=== PATIENT | female | born 1940 | race Caucasian/White ===

== ENCOUNTER 2016-12-08 04:05 | Emergency (ER) | payer OTHER ==
[~2016-12-08] VITALS: Ht 160 cm; Wt 74.4 kg
--- NOTE | 2016-12-08 04:10 | NUR ---
Patient to ER bed 6 to gown for evaluation. Side rails up. Report given to LAMBERTO BENAVIDES.
[2016-12-08 04:12] VITALS: BP_SYST 157
--- NOTE | 2016-12-08 04:15 | NUR ---
Patient to ER C/O RLQ abdominal pain 11/12 w/o N/V/D/C. Patient states that pain started last evening. AAox4, unlabored breathing, afebrile, no signs of acute distress.
--- NOTE | 2016-12-08 04:16 | NUR ---
RENEE VELOZ Kwaw at bedside evaluating the patient
--- NOTE | 2016-12-08 04:25 | NUR ---
# 20 gauge angiocath placed to left ac. Use of asceptic technique. Opsite placed over site. Blood return noted. Blood for lab drawn from site. Flushed with 10 cc of normal saline. No evidence of infiltration noted. Patient tolerated well.
[2016-12-08 04:40] LABS: BASOPHILS % (AUTO) 0.4 % (0.0-2.0); EOSINOPHILS % (AUTO) 0.2 % (0.0-4.0); HEMATOCRIT 39.9 % (36-48); HEMOGLOBIN 13.3 g/dL (12.0-16.0); LYMPHOCYTES # (AUTO) 1.2 K/uL (1.0-5.5); LYMPHOCYTES % (AUTO) 14.3 % (20.5-51.5); MEAN CORPUSCULAR HEMOGLOBIN 31 pg (27-31); MEAN CORPUSCULAR HGB CONC 33 % (32-36); MEAN CORPUSCULAR VOLUME 93 fL (79.0-98.0); MONOCYTES # (AUTO) 0.5 K/uL (0.0-1.0); NEUTROPHILS # (AUTO) 6.8 K/uL (1.8-7.7); NEUTROPHILS % (AUTO) 79.1 % (40.0-70.0); PLATELET COUNT (AUTO) 281 K/uL (130-430); RED BLOOD CELL COUNT(AUTO) 4.29 MIL/uL (4.2-6.2); RED CELL DISTRIBUTION WIDTH 12.1 % (9.0-15.0); WHITE BLOOD COUNT (AUTO) 8.5 K/uL (4.8-10.8)
[2016-12-08 04:49] LABS: BILIRUBIN,URINE NEGATIVE (NEGATIVE); BLOOD, URINE 3+ (NEGATIVE); CLARITY/URINE CLOUDY (CLEAR); COLOR,URINE YELLOW (YELLOW); GLUCOSE,URINE NEGATIVE (NEGATIVE); KETONES,URINE 1+ (NEGATIVE); LEUKOCYTE ESTERASE ,URINE TRACE (NEGATIVE); NITRITE, URINE NEGATIVE (NEGATIVE); PROTEIN URINE 2+ (NEGATIVE); UROBILINOGEN,URINE 0.2 (0.2-1.0)
[2016-12-08 04:55] LABS: ANION GAP 8 (5-15); CALCIUM 8.8 mg/dL (8.4-11.0); CHLORIDE 106 mmol/L (98-107); CREATININE 1.18 mg/dL (0.55-1.30); GLUCOSE 145 mg/dL (70-99); POTASSIUM 3.6 mmol/L (3.5-5.1); SODIUM SERUM 140 mmol/L (136-145); UREA NITROGEN, BLOOD 12 mg/dL (8-21)
[2016-12-08 04:56] LABS: RBC,URINE 50-80 /HPF (0-3)
[2016-12-08 04:57] LABS: BACTERIA,URINE FEW /HPF (None Seen); MUCUS,URINE None Seen /LPF (None Seen); YEAST,URINE Rare /HPF (None Seen)
[2016-12-08 04:59] LABS: ALANINE AMINOTRANSFERASE 23 U/L (12-78); ALBUMIN 3.9 g/dL (3.4-4.8); ASPARTATE AMINOTRANSFERASE 18 U/L (10-37); LIPASE 88 U/L (73-393); TOTAL BILIRUBIN 0.4 mg/dL (0.0-1.0)
[2016-12-08] MEDS ORDERED: cefTRIAXone 1 GM IVPB PREMIX 50 ML IV ONE ×2 (05:30→05:31)
--- NOTE | 2016-12-08 05:40 | NUR ---
20 minutes after administration of Rocephin, no adverse reactions noted. Will continue to monitor.
[2016-12-08 06:02] VITALS: BP_SYST 136
--- NOTE | 2016-12-08 06:02 | NUR ---
Patient given written and verbal discharge instructions and verbalizes understanding. ER MD Tavarez discussed with patient the results and treatment provided. Patient in stable condition. ID arm band removed. IV catheter removed intact and dressing applied, no active bleeding. Rx of macrobid & pyridium given. Patient educated on pain management and to follow up with PMD. Pain Scale 0/10. Opportunity for questions provided and answered.
== END 2016-12-08 06:02 | disposition home or self-care (01) ==
LOC: SED 04:05
DX: N39.0 Urinary tract infection, site not specified (principal); I10 Essential (primary) hypertension
CPT/HCPCS: 36415; 80053; 81000; 83690; 85025; 87086; 96365; 99284; J0696

== ENCOUNTER 2017-01-19 09:16 | Emergency (ER) | payer OTHER ==
[~2017-01-19] VITALS: Ht 160 cm; Wt 63.5 kg
[2017-01-19 09:16] VITALS: BP_SYST 164
[2017-01-19 09:55] VITALS: BP_SYST 160
== END 2017-01-19 09:55 | disposition home or self-care (01) ==
LOC: SED 09:16
DX: S83.92XA Sprain of unspecified site of left knee, initial encounter (principal); I10 Essential (primary) hypertension; X58.XXXA Exposure to other specified factors, initial encounter; Y93.89 Activity, other specified; Y92.89 Other specified places as the place of occurrence of the external cause; Y99.8 Other external cause status
CPT/HCPCS: 73564; 99284

== ENCOUNTER 2019-04-26 10:50 | Outpatient (CLI) | payer OTHER | END 2019-04-26 21:05 | disposition home or self-care (01) | LOC: SMA 10:50 | DX: Z12.31 Encounter for screening mammogram for malignant neoplasm of breast (principal) | CPT/HCPCS: 77067 ==

== ENCOUNTER 2019-05-01 21:37 | Inpatient (IN) | payer OTHER ==
[~2019-05-01] VITALS: Ht 160 cm; Wt 68.9 kg
[2019-05-01 21:44] VITALS: BP_SYST 155
--- NOTE | 2019-05-01 21:55 | NUR ---
Gown placed to pt, cooling measures in effect.
--- NOTE | 2019-05-01 21:57 | NUR ---
Pt to lab via W/C in stable condition. Accompanied by Temperature Control Inspector and pts daughter.
[2019-05-01] MEDS ORDERED: ACETAMINOPHEN 325 MG TABLET ONE (22:25)
[2019-05-01 22:35] LABS: HEMATOCRIT 40.8 % (36-48); HEMOGLOBIN 13.8 g/dL (12.0-16.0); MEAN CORPUSCULAR HEMOGLOBIN 31 pg (27-31); MEAN CORPUSCULAR HGB CONC 34 % (32-36); MEAN CORPUSCULAR VOLUME 93 fL (79.0-98.0); PLATELET COUNT (AUTO) 248 K/uL (130-430); RED CELL DISTRIBUTION WIDTH 11.8 % (9.0-15.0); WHITE BLOOD COUNT (AUTO) 19.8 K/uL (4.8-10.8)
[2019-05-01 22:39] LABS: ANION GAP 8 (5-15); CALCIUM 8.5 mg/dL (8.4-11.0); CHLORIDE 94 mmol/L (98-107); CREATININE 1.22 mg/dL (0.55-1.30); GLUCOSE 156 mg/dL (70-99); POTASSIUM 3.5 mmol/L (3.5-5.1); SODIUM SERUM 128 mmol/L (136-145); UREA NITROGEN, BLOOD 21 mg/dL (8-21)
[2019-05-01 22:49] LABS: ALANINE AMINOTRANSFERASE 21 U/L (12-78); ALBUMIN 3.1 g/dL (3.4-4.8); ASPARTATE AMINOTRANSFERASE 28 U/L (10-37); TOTAL BILIRUBIN 0.9 mg/dL (0.0-1.0)
--- NOTE | 2019-05-01 23:00 | NUR ---
Temp recheck: 97.9. Denies c/o pain or discomfort, daughter present at pts side, no needs verbalized at this time. NAD.
[2019-05-01 23:25] LABS: BASOPHILS % (MANUAL) 0 % (0-2); EOSINOPHILS % (MANUAL) 0 % (0-7); LYMPHOCYTES % (MANUAL) 3 % (20-46); MONOCYTES % (MANUAL) 6 % (0-11)
--- NOTE | 2019-05-01 23:30 | NUR ---
Pt to ER Chair 1. Report given to KENNEDY Buckley.
--- NOTE | 2019-05-01 23:50 | NUR ---
[facility].
--- NOTE | 2019-05-02 00:07 | NUR ---
IVF infusing with no s/s of infiltration at this time. Will cont to monitor
[2019-05-02 00:08] LABS: BILIRUBIN,URINE 1+ (NEGATIVE); BLOOD, URINE 3+ (NEGATIVE); CLARITY/URINE TURBID (CLEAR); GLUCOSE,URINE NEGATIVE (NEGATIVE); KETONES,URINE NEGATIVE (NEGATIVE); LEUKOCYTE ESTERASE ,URINE 2+ (NEGATIVE); NITRITE, URINE NEGATIVE (NEGATIVE); PROTEIN URINE 3+ (NEGATIVE)
--- NOTE | 2019-05-02 00:13 | NUR ---
BIB family for ALOC. Pt was unsteady on feet, forgot how to put on a seat belt, forgetfullness. Per daughter is better than she was this afternoon. Pt denies n/v, denies chest pain, denies headache.
[2019-05-02 00:26] LABS: COLOR,URINE YELLOW (YELLOW)
[2019-05-02 00:30] LABS: BACTERIA,URINE MANY /HPF (None Seen); FINE GRANULAR CASTS,URINE 0-10 /LPF (None Seen); RBC,URINE 20-50 /HPF (0-3); WBC,URINE 20-50 /HPF (0-3)
[2019-05-02] MEDS ORDERED: NACL 0.9% 1,000 ML IV ONE (00:48)
[2019-05-02] MEDS ORDERED: cefTRIAXone 1 GM IVPB PREMIX 50 ML IV ONE (01:00)
--- NOTE | 2019-05-02 01:24 | NUR ---
Patient will be admitted to care of Tyree. Admitted to tele unit. Will go to room 119-A. Belongings list completed. Complete and up to date summary report printed. SBAR report to be given at bedside with opportunity for questions. Transfer to tele via ACLS protocol. Licensed nurse present. IV present no signs or symptoms of infiltration.
[2019-05-02] MEDS ORDERED: LIP10 PO (01:31)
[2019-05-02] MEDS ORDERED: AMLO5TAB4 PO (01:31)
--- NOTE | 2019-05-02 01:38 | NUR ---
ADMISSION NOTE Received patient from ER via gurney. Patient admitted with diagnosis of Sepsis/UTI. Patient is awake, alert, oriented X 3. Patient oriented to hospital room, call light, toileting, pain management and safety-teach back done. Patient informed that KENNEDY Berumen will be primary nurse and that their room number is 119A. Personal belongings checked and Belongings List documented. Call light within reach.
[2019-05-02 01:46] VITALS: BP_SYST 111
--- NOTE | 2019-05-02 02:00 | NUR ---
initial notes: pt is awake, alert,oriented x4, no pain, no sob, not distress. pt vital sign are with in normal limit. iv lock to right forearm gauge 20- intact and patent. no skin break down, steady gait.orient pt to room, call light and safety. pt verbalized understanding.needs attended, call light in reach, side rails up. low bed position. will monitor.
[2019-05-02] MEDS ORDERED: NACL 0.9% 1,000 ML IV SCH (03:12)
[2019-05-02] MEDS ORDERED: MORPHINE 4 MG/ML INJ. SYRINGE IVP PRN (03:15)
[2019-05-02] MEDS ORDERED: MORPHINE 2 MG/ML INJ. SYRINGE IVP PRN (03:15)
[2019-05-02] MEDS ORDERED: ONDANSETRON HCL 4 MG/2 ML VIAL IVP PRN (03:15)
[2019-05-02] MEDS ORDERED: ALBUTEROL SULFATE 0.083% 2.5 MG/3 ML VIAL.NEB INH PRN (03:15)
[2019-05-02 03:27] VITALS: BP_SYST 101
[2019-05-02] MEDS ORDERED: NS 500 ML IV SCH (03:30)
--- NOTE | 2019-05-02 04:10 | NUR ---
sleeping on her side, comfortable. no sob. stable. call light in reach. will monitor.
--- NOTE | 2019-05-02 05:02 | NUR ---
Swallow Eval Called Called and left a message for [place], regarding swallow eval, ordered by Dr. Buckner.
--- NOTE | 2019-05-02 06:00 | NUR ---
resting quietly, no pain. no sob. no distress. call light in reach, bed alarm on. will monitor.
--- NOTE | 2019-05-02 07:22 | NUR ---
closing: pt is resting, wakes up during report. no pain. no sob. stable. ivf infusing well. needs attended the whole shift. safety on. bedside report given to am rn.
[2019-05-02 08:10] VITALS: BP_SYST 109
--- NOTE | 2019-05-02 08:10 | NUR ---
Routine Patient awake, alert, oriented x4. Glasses. Lungs clear. Respiration even and unlabored. ST per telemetry monitoring. Patent 20 gauge IV in right forearm, infusing NS at 75 ml/hr with no redness or swelling at site. Small scab on left contreras. SCDs. Denies any pain. Patient stable.
[2019-05-02 08:26] LABS: BASOPHILS % (AUTO) 0.1 % (0.0-2.0); HEMATOCRIT 37.3 % (36-48); HEMOGLOBIN 12.6 g/dL (12.0-16.0); LYMPHOCYTES # (AUTO) 0.5 K/uL (1.0-5.5); LYMPHOCYTES % (AUTO) 3.1 % (20.5-51.5); MEAN CORPUSCULAR HEMOGLOBIN 31 pg (27-31); MEAN CORPUSCULAR HGB CONC 34 % (32-36); MEAN CORPUSCULAR VOLUME 92 fL (79.0-98.0); MONOCYTES # (AUTO) 1.7 K/uL (0.0-1.0); MONOCYTES % (AUTO) 10.7 % (1.7-9.3); NEUTROPHILS # (AUTO) 13.9 K/uL (1.8-7.7); NEUTROPHILS % (AUTO) 86.1 % (40.0-70.0); PLATELET COUNT (AUTO) 191 K/uL (130-430); RED BLOOD CELL COUNT(AUTO) 4.04 MIL/uL (4.2-6.2); RED CELL DISTRIBUTION WIDTH 11.9 % (9.0-15.0); WHITE BLOOD COUNT (AUTO) 16.1 K/uL (4.8-10.8)
[2019-05-02 08:33] LABS: ALANINE AMINOTRANSFERASE 23 U/L (12-78); ALBUMIN 2.7 g/dL (3.4-4.8); ANION GAP 8 (5-15); ASPARTATE AMINOTRANSFERASE 27 U/L (10-37); CALCIUM 8.1 mg/dL (8.4-11.0); CHLORIDE 95 mmol/L (98-107); CREATININE 1.14 mg/dL (0.55-1.30); GLUCOSE 131 mg/dL (70-99); POTASSIUM 3.4 mmol/L (3.5-5.1); SODIUM SERUM 128 mmol/L (136-145); TOTAL BILIRUBIN 0.6 mg/dL (0.0-1.0); UREA NITROGEN, BLOOD 19 mg/dL (8-21)
[2019-05-02] MEDS: ATORVASTATIN 10 MG TABLET PO SCH (09:32)
[2019-05-02] MEDS: amLODIPine BESYLATE 5 MG TABLET PO SCH (09:33)
--- NOTE | 2019-05-02 09:34 | NUR ---
Routine Scheduled medications given per order. Patient resting comfortably in bed with no complaint of any pain at this time. Patient stable.
--- NOTE | 2019-05-02 12:27 | NUR ---
Routine Patient resting comfortably in bed with daughter, Char at bedside. Patient denies any pain. Patient stable at this time.
[2019-05-02 12:50] VITALS: BP_SYST 144
[2019-05-02] MEDS: ACETAMINOPHEN 325 MG TABLET PO PRN ×2 (13:20→22:11)
[2019-05-02] MEDS: cefTRIAXone 1 GM IVPB PREMIX 50 ML IV SCH (13:20)
--- NOTE | 2019-05-02 13:27 | NUR ---
Routine Scheduled IV abx given per order. Tylenol given as well for fever. Patient stable with daughter at bedside.
--- NOTE | 2019-05-02 14:20 | NUR ---
Routine Rechecked temp: 97.8
[2019-05-02 15:08] VITALS: BP_SYST 131
--- NOTE | 2019-05-02 16:29 | NUR ---
Social Service Note: BOX INSPECTOR spoke with pt's granddaughter who states that pt cannot go home upon discharge. Pt lives in a mobile home alone. Granddaughter would like to see if pt qualifies for [employer]. ALPHONSO has made referral Ricco Laureano for [employer] screen. BOX INSPECTOR encouraged pt's granddaughter to speak to commercial lines insurance agent about short term placement.
--- NOTE | 2019-05-02 16:35 | NUR ---
Routine Patient resting comfortably and quietly in bed with family member at bedside. No complaint of pain or discomfort. Patient stable at this time.
--- NOTE | 2019-05-02 17:18 | NUR ---
S.T. SWALLOW EVAL SWALLOW EVAL COMPLETED. PT PRESENTS W/ FUNCTIONAL OROPHARYNGEAL SWALLOW W/ TIMELY BOLUS TRANSFER, TIMELY SWALLOW INITIATION, AND NO S/S OF ASPIRATION. REC: CONTINUE REGULAR TEXTURED DIET. THIN LIQUIDS OK. PT AND DTR IN AGREEMENT W/ RESULTS AND REC. NURSE JOSE ROBERTO NOTIFIED.
--- NOTE | 2019-05-02 18:40 | NUR ---
Routine Patient ambulated to bathroom and back to bed. Patient stable throughout shift.
--- NOTE | 2019-05-02 19:30 | NUR ---
OPENING NOTE RECEIVED CARE OF PT AND SBAR REPORT. PT IS AAOX3, NO S/S OF ACUTE DISTRESS, AFEBRILE AT THIS TIME. PT DENIES PAIN OR DISCOMFORT. IV IS PATENT WITH NO S/S OF INFILTRATION AT IV SITE. PT ORIENTED TO USE OF CALL LIGHT AND ENCOURAGED TO CALL FOR ANY ASSISTANCE. SAFETY PRECAUTIONS ARE IN PLACE: BED IS LOCKED IN LOWEST POSITION, SIDE RAILS UP X3, CALL LIGHT IS WITH PT, BED ALARM ON. WILL CONTINUE TO MONITOR.
[2019-05-02 20:00] VITALS: BP_SYST 148
--- NOTE | 2019-05-02 21:40 | NUR ---
CONFUSED/ROOM CHANGE PT INCONTINENT OF BOWELS, ATTEMPTING TO AMBULATE WITH UNSTEADY GAIT, PT STATES SHE DOES NOT KNOW WHAT IS GOING ON. PT RETURNED SAFELY TO BED. BED BATH GIVEN. COMPLETE LINEN AND GOWN CHANGE RENDERED. PT CONFUSED AT THIS TIME. PT MOVED TO ROOM 121B TO BE CLOSER TO NURSES STATION. SAFETY AND FALL PRECAUTIONS REMAIN IN PLACE. CALL LIGHT IS WITH PT. WILL MONITOR CLOSELY.
--- NOTE | 2019-05-02 22:11 | NUR ---
TYLENOL PT TEMPERATURE OF 100.4 DEGREES FAHRENHEIT. TYLENOL 650 MG PO ADMINISTERED ORDERED PRN. MEDICATION AND POTENTIAL SIDE EFFECTS DISCUSSED. PT CONFUSED AT THIS TIME. SAFETY PRECAUTIONS MAINTAINED.
[2019-05-03] VITALS (7 sets, daily range): BP systolic 122–153
--- NOTE | 2019-05-03 00:35 | NUR ---
IV RE-INSERTION: Restarted on RIGHT FOREARM 22 GAUGE . Successful after 2 attempts. Will observe for any signs of infiltration.
[2019-05-03] MEDS: cefTRIAXone 1 GM IVPB PREMIX 50 ML IV SCH ×2 (00:57→12:52)
--- NOTE | 2019-05-03 00:57 | NUR ---
ROCEPHIN SCHEDULED ROCEPHIN ADMINISTERED. NO S/S OF ADVERSE REACTION NOTED.
--- NOTE | 2019-05-03 03:28 | NUR ---
DR. BOLDEN ROUNDS INFORMED DR. BOLDEN REGARDING PT'S RENAL ULTRASOUND RESULTS.
--- NOTE | 2019-05-03 05:30 | NUR ---
BEDPAN/CLEANED ASSISTED PT TO USE BEDPAN. PT URINATED. PT CLEANED AND PROVIDED FRESH LINEN AND GOWN. PT PROVIDED REALITY ORIENTATION. NO S/S OF ACUTE DISTRESS. SAFETY MAINTAINED. WILL MONITOR.
--- NOTE | 2019-05-03 06:50 | NUR ---
CLOSING NOTE PT IS AAOX3, NO S/S OF ACUTE DISTRESS, AFEBRILE AT THIS TIME. PT DENIES PAIN OR DISCOMFORT. IV IS PATENT WITH NO S/S OF INFILTRATION AT IV SITE. PT ORIENTED TO USE OF CALL LIGHT AND ENCOURAGED TO CALL FOR ANY ASSISTANCE. SAFETY PRECAUTIONS ARE IN PLACE: BED IS LOCKED IN LOWEST POSITION, SIDE RAILS UP X3, CALL LIGHT IS WITH PT, BED ALARM ON. WILL ENDORSE TO DAY SHIFT RN.
--- NOTE | 2019-05-03 07:35 | NUR ---
opening note patient is resting in bed, alert and oriented, educated insulation power unit tender light system and plan of care, patient verbalized understanding, no signs of distress at this time, IV site dressing intact, no other needs addressed at this time, brake armed, two side rails up, bed alarm on, call light within reach, room close to station, fall/safety precautions in place.
[2019-05-03] MEDS: amLODIPine BESYLATE 5 MG TABLET PO SCH (08:14)
[2019-05-03] MEDS: ATORVASTATIN 10 MG TABLET PO SCH (08:14)
--- NOTE | 2019-05-03 10:10 | NUR ---
patient attempted to walk patient resting in bed, patient wanted to attempt walking, patient had an unsteady, assisted back to bed, re-inforced education on using call light if patient wants to get up, educated on the need for the bed alarm, patient verbalized understanding, fall/safety precautions in place.
--- NOTE | 2019-05-03 12:00 | NUR ---
rounds patient is resting in bed, no signs of distress at this time, patient denies any chest pain, SOB, pain or chills, patient is about to eat lunch, no other needs addressed at this time, fall/safety precautions in place.
--- NOTE | 2019-05-03 14:26 | NUR ---
rounds patient is resting in bed, eyes closed breathing easy and nonlabored, no signs of distress at this time, no needs addressed at this time, fall/safety precautions in place.
--- NOTE | 2019-05-03 15:13 | NUR ---
Dietitian Recommendations * Recommend continuing cardiac diet * Encourage increase PO intakes LP, RD Please refer to Nutrition Assessment for details. Addendum: 05/03/19 at [address] Amended: Links added.
--- NOTE | 2019-05-03 16:38 | NUR ---
rounds patient is resting in bed, doing her crossword puzzle, no signs of distress at this time, no needs addressed at this time, fall/safety precautions in place.
--- NOTE | 2019-05-03 17:27 | NUR ---
CONSULTATION PAGED REASON FOR CONSULTATION:HYDRONEPROSIS WAS CONSULT CALLED?Y PERSON WHO WAS NOTIFIED:LEFT A VOICEMAIL CONSULTING PHYSICIAN:MILANA VELASQUEZ MEDICAL OFFICE RECEPTIONIST ASSISTANT SPECIALTY:UROLOGY MEDICAL OFFICE RECEPTIONIST ASSISTANT PHONE NUMBER:[phone] REQUESTING PHYSICIAN:SHWETA ZHENG
--- NOTE | 2019-05-03 18:45 | NUR ---
closing note patient is resting in bed, alert and oriented, no signs of distress at this time, IV site dressing intact, no other needs addressed at this time, brake armed, two side rails up, bed alarm on, call light within reach, room close to station, fall/safety precautions in place, will endorse report to noc shift nurse to continue with care, patient needs assistance to ambulate to bathroom.
--- NOTE | 2019-05-03 19:15 | NUR ---
CHANGE OF SHIFT; pt. awake, forgetful, with family at bedside. due hs care done and assisted by FRONT EDGER. no acute distress. on fall risk precautions. call light at bedside but forgets to use it as endorsed.
--- NOTE | 2019-05-03 20:15 | NUR ---
NOTES: pt. sleeping, awakened, VS checked. no complaints manifested. on photographic technician and shows sinus tach with PVC's. IV lock on rt. forearm. able to move all extremities. on room air. no shortness of breath.
--- NOTE | 2019-05-03 21:00 | NUR ---
NOTES: pt. got out of bed sayinf she is sleeping in the couch, reoriented and went back to bed. bed alarm on. no due medication.
--- NOTE | 2019-05-03 23:10 | NUR ---
NOTES: pt. been sleeping, no complaints noted. on fall risk precautions.
[2019-05-04] VITALS: BP_SYST 145
--- NOTE | 2019-05-04 01:00 | NUR ---
NOTES: pt. sound asleep. condition observed.
[2019-05-04] MEDS: cefTRIAXone 1 GM IVPB PREMIX 50 ML IV SCH ×2 (01:07→13:00)
--- NOTE | 2019-05-04 03:09 | NUR ---
NOTES: pt. woke up forget to use call light, ambulated to restroom and voided.
--- NOTE | 2019-05-04 05:56 | NUR ---
NOTES: been waking up in between since her room mate is noisy. no other complaints. IV lock flushed.
--- NOTE | 2019-05-04 06:45 | NUR ---
CLOSING NOTES; pt. already awake, sitting at the edge of the bed. reminded to stay in bed. for further care and assist. call light at bedside. IV lock intact.
[2019-05-04 06:48] LABS: BASOPHILS % (AUTO) 0.2 % (0.0-2.0); HEMATOCRIT 36.8 % (36-48); HEMOGLOBIN 12.4 g/dL (12.0-16.0); LYMPHOCYTES # (AUTO) 1.1 K/uL (1.0-5.5); LYMPHOCYTES % (AUTO) 9.6 % (20.5-51.5); MEAN CORPUSCULAR HEMOGLOBIN 31 pg (27-31); MEAN CORPUSCULAR HGB CONC 34 % (32-36); MEAN CORPUSCULAR VOLUME 92 fL (79.0-98.0); MONOCYTES # (AUTO) 2.1 K/uL (0.0-1.0); MONOCYTES % (AUTO) 17.9 % (1.7-9.3); NEUTROPHILS # (AUTO) 8.7 K/uL (1.8-7.7); NEUTROPHILS % (AUTO) 72.3 % (40.0-70.0); PLATELET COUNT (AUTO) 231 K/uL (130-430); RED BLOOD CELL COUNT(AUTO) 3.99 MIL/uL (4.2-6.2); RED CELL DISTRIBUTION WIDTH 11.8 % (9.0-15.0)
[2019-05-04 07:07] LABS: ALANINE AMINOTRANSFERASE 30 U/L (12-78); ALBUMIN 2.1 g/dL (3.4-4.8); ANION GAP 7 (5-15); ASPARTATE AMINOTRANSFERASE 26 U/L (10-37); CALCIUM 8.1 mg/dL (8.4-11.0); CHLORIDE 96 mmol/L (98-107); CREATININE 0.85 mg/dL (0.55-1.30); GLUCOSE 103 mg/dL (70-99); SODIUM SERUM 129 mmol/L (136-145); TOTAL BILIRUBIN 0.4 mg/dL (0.0-1.0); UREA NITROGEN, BLOOD 10 mg/dL (8-21)
[2019-05-04 07:35] LABS: POTASSIUM 2.7 mmol/L (3.5-5.1)
--- NOTE | 2019-05-04 07:50 | NUR ---
opening note patient is resting in bed, alert and oriented, educated fermentation scientist light system and plan of care, patient verbalized understanding, no signs of distress at this time, IV site dressing intact, no other needs addressed at this time, brake armed, two side rails up, bed alarm on, call light within reach, room close to station, fall/safety precautions in place.
[2019-05-04 08:00] VITALS: BP_SYST 126
[2019-05-04] MEDS: amLODIPine BESYLATE 5 MG TABLET PO SCH (08:16)
[2019-05-04] MEDS: ATORVASTATIN 10 MG TABLET PO SCH (08:16)
[2019-05-04] MEDS ORDERED: POTASSIUM CHLORIDE 20 MEQ TAB.PRT.SR PO ONE (08:45)
[2019-05-04] MEDS ORDERED: POTASSIUM CHLORIDE 60 MEQ in NS 500 ML IV ONE (08:45)
--- NOTE | 2019-05-04 10:50 | NUR ---
assisted patient to bathroom patient walked to bathroom and back to bed with assistance, no signs of distress at this time, patient tolerating well to k rider, no other needs at this time, fall/safety precautions in place.
--- NOTE | 2019-05-04 12:26 | NUR ---
CONSULTATION PAGED/CALLED FOLLOW UP Reason for Consultation: HYDRONEPROSIS Person Who was Notified: YESENIA Consulting Physician: Pbx Mechanic Specialty: Ordering Physician:
[2019-05-04 12:30] VITALS: BP_SYST 120
--- NOTE | 2019-05-04 12:55 | NUR ---
rounds patient resting in bed, working on her crossword puzzles, no signs of distress at this time, no needs addressed at this time, fall/safety precautions in place.
--- NOTE | 2019-05-04 14:30 | NUR ---
MOORE CATH: # 16 FR Moore catheter with 10 cc bulb inserted with use of sterile technique. Bulb inflated with 10 cc sterile water. Immediate return of 200 cc yellow urine noted. Bedside drainage bag placed below level of bladder. Urine sample collected and sent to lab at 1435. Pt tolerated procedure well.
--- NOTE | 2019-05-04 14:55 | NUR ---
IV RE-INSERTION: Complaining of pain to IV site. Restarted on right forearm. Successful after 1 attempts. Will observe for any signs of infiltration. Addendum: 05/04/19 at 1716 by Jeanie Boo RN ignore note
[2019-05-04 15:49] LABS: BILIRUBIN,URINE NEGATIVE (NEGATIVE); BLOOD, URINE 2+ (NEGATIVE); CLARITY/URINE CLEAR (CLEAR); COLOR,URINE YELLOW (YELLOW); GLUCOSE,URINE NEGATIVE (NEGATIVE); KETONES,URINE NEGATIVE (NEGATIVE); LEUKOCYTE ESTERASE ,URINE NEGATIVE (NEGATIVE); NITRITE, URINE NEGATIVE (NEGATIVE); PROTEIN URINE 1+ (NEGATIVE); UROBILINOGEN,URINE 0.2 (0.2-1.0)
[2019-05-04 16:08] LABS: BACTERIA,URINE FEW /HPF (None Seen)
[2019-05-04 16:09] LABS: MUCUS,URINE None Seen /LPF (None Seen)
[2019-05-04 16:31] VITALS: BP_SYST 136
--- NOTE | 2019-05-04 16:37 | NUR ---
[employer] application Ricco with [employer] called. He requested ACCOUNTS PAYABLE SUPERVISOR retrieve the signed paperwork for the [employer] application from patient's room. Done. He will pick it up from Social Service office on 05/09/19.
--- NOTE | 2019-05-04 16:55 | NUR ---
IV RE-INSERTION: Complaining of pain to IV site. Restarted on right forearm. Successful after 1 attempts. Will observe for any signs of infiltration.
--- NOTE | 2019-05-04 18:40 | NUR ---
closing note patient is resting in bed, family at the bedside, patient's daughter notarized to be POA for the patient, copy is in the chart, Dr Gastelum talked to the daughter about surgery tomorrow, consent has been signed by daughter, no signs of distress at this time, IV site dressing intact, no other needs addressed at this time, brake armed, two side rails up, bed alarm on, call light within reach, room close to station, fall/safety precautions in place, will endorse report to [facility] shift nurse to continue with care, patient needs assistance to ambulate to bathroom, patient has a peguero catheter now.
--- NOTE | 2019-05-04 19:20 | NUR ---
CHANGE OF SHIFT; pt. awake, alert when received doing Sudoku, no complaints manifested. K rider still in progress via rt. forearm. call light at bedside. on fall risk precautions. reminded pt. to use call light for help, pt. forgetful.
[2019-05-04 20:15] VITALS: BP_SYST 146
--- NOTE | 2019-05-04 20:15 | NUR ---
NOTES: VS checked. IVF still infusing. pt. reminded about the procedure tomorrow, informed pt. that her daughter is aware of it, consent signed by her. NPO after midnight. pt. reminded she has a peguero cath , keeps saying she has to go to the restroom. able to move all extremities. no complaints at this time. bed alarm on, on fall risk precautions. manager monitoring shows sinus rhythm. pt. room close to nurses station.
--- NOTE | 2019-05-04 21:00 | NUR ---
NOTES: Lety lauren completed. pt. repositioned self for comfort. still forgetful. pt. needs attended.
--- NOTE | 2019-05-04 22:30 | NUR ---
NOTES: pt. been sleeping on and off. reminded again about her peguero and surgery in am, nothing to eat or drink after midnight. bed alarm on.
[2019-05-05 00:10] VITALS: BP_SYST 124
--- NOTE | 2019-05-05 00:51 | NUR ---
paged paged for Dr Gastelum, dialed . s/w Megha.
--- NOTE | 2019-05-05 00:58 | NUR ---
s/w Dr. Gastelum. Informed patient requesting water, patient informed prior of NPO status for surgery tomorrow. Asked MD if patient can have ice chips. No sips of water or ice chips per MD.
[2019-05-05] MEDS: cefTRIAXone 1 GM IVPB PREMIX 50 ML IV SCH ×2 (01:00→13:30)
--- NOTE | 2019-05-05 03:00 | NUR ---
NOTES: pt. sleeping but everytime someone gets in the room will wake up and ask to go restroom and water, reminded of surgery today and peguero catheter. pt. needs attended. call light at bedside.
--- NOTE | 2019-05-05 05:30 | NUR ---
NOTES: pt. awakened, still asking for water and her peguero cath. reminded about the scheduled surgery this am. condition unchanged. call light at bedside.
--- NOTE | 2019-05-05 06:52 | NUR ---
CLOSING NOTES; pt. sleeping. initiated preop checklist, consent signed by her daughter. IV site patent, TKO running. remain sinus rhythm. remain NPO, peguero cath intact. for further care and assistance. will endorse to day shift nurse.
[2019-05-05 08:00] VITALS: BP_SYST 144
--- NOTE | 2019-05-05 08:00 | NUR ---
initial notes late entry. rec patient awake alert and confused. pt is upset bec of her npo status. for sx at 0900 today. resp easy and unlabored. no sob noted. bed to the lowest position and side rails up and locked. call light within reached. pt is closed to the nurses station. will continue to monitor patient.
[2019-05-05] MEDS ORDERED: LR 1,000 ML IV SCH (08:47)
[2019-05-05] MEDS ORDERED: IOHEXOL 50 ML IV ONE (08:55)
[2019-05-05] MEDS ORDERED: MEPERIDINE HCL/PF 25 MG/ML DISP.SYRIN IVP PRN (09:00)
[2019-05-05] MEDS ORDERED: HYDROmorphone 2 MG/ML VIAL IVP PRN ×2 (09:00)
[2019-05-05] MEDS ORDERED: HYDROmorphone 1 MG INJ. 1 MG/ML AMPUL IVP PRN (09:00)
[2019-05-05] MEDS: ATORVASTATIN 10 MG TABLET PO SCH (09:00)
[2019-05-05] MEDS: amLODIPine BESYLATE 5 MG TABLET PO SCH (09:00)
[2019-05-05] MEDS ORDERED: DEXAMETHASONE SOD PHOSPHATE 4 MG/ML VIAL ONE (09:40)
[2019-05-05] MEDS ORDERED: fentaNYL CITRATE 250 MCG/5 ML AMP ONE (09:40)
[2019-05-05] MEDS ORDERED: MIDAZOLAM HCL 5 MG/ML VIAL (VERSED) IV ONE (09:40)
[2019-05-05] MEDS ORDERED: ROCURONIUM BROMIDE 10 MG/ML (ZEMURON) ONE (09:40)
[2019-05-05] MEDS ORDERED: ONDANSETRON HCL 4 MG/2 ML VIAL ONE (09:40)
[2019-05-05] MEDS ORDERED: PROPOFOL 200MG/ 20ML VIAL (DIPRIVAN) IV ONE (09:40)
[2019-05-05] MEDS ORDERED: KETOROLAC TROMETHAMINE 15 MG VIAL ONE (09:40)
[2019-05-05] MEDS ORDERED: SEVOFLURANE 15 MIN GAS INH ONE (09:40)
--- NOTE | 2019-05-05 10:30 | NUR ---
rounds pt back from rr s/p cystoscopy and l uretheral stent. no bleeding noted. asleep at this time.
--- NOTE | 2019-05-05 12:00 | NUR ---
rounds pt is getting confused and trying to get oob. bed alarm on and stayed with patient. reorient with surroundings. no sob noted.
--- NOTE | 2019-05-05 12:02 | NUR ---
CONSULTATION PAGED/CALLED Reason for Consultation: [] LUNG MASS Person Who was Notified: [] LULA Consulting Physician: [] DR Mikle FELIPE Loan Operations Specialist Specialty: [] PULMO Ordering Physician: [] DR Fabian SHORE
[2019-05-05 12:08] LABS: ANION GAP 10 (5-15); CALCIUM 8.1 mg/dL (8.4-11.0); CHLORIDE 105 mmol/L (98-107); CREATININE 0.79 mg/dL (0.55-1.30); GLUCOSE 123 mg/dL (70-99); POTASSIUM 3.9 mmol/L (3.5-5.1); SODIUM SERUM 140 mmol/L (136-145); UREA NITROGEN, BLOOD 13 mg/dL (8-21)
--- NOTE | 2019-05-05 15:28 | NUR ---
Nutrition Note RD met w/ pt at bedside to inquire about food preferences and encourage PO intakes. Pt was agreeable w/ snacks TID in-between meals (fruit cocktail) and Ensure Enlive TID (chocolate/vanilla) w/ meals. RD to continue to follow as per nutrition care standards.
[2019-05-05 15:30] VITALS: BP_SYST 109
[2019-05-05 18:09] VITALS: BP_SYST 126
--- NOTE | 2019-05-05 18:30 | NUR ---
closing notes resting comfortably at this time. no sob noted. no periods of confusion at this time. family at bedside. bed to the lowest position and side rails up and locked. call light within reached.
--- NOTE | 2019-05-05 19:30 | NUR ---
OPENING NOTES Received patient resting in bed, no signs of acute respiratory distress observed, HOB elevated. IV site patent, dressings c/d/i, saline lock. Shahid catheter in place, draining by gravity, no kinks or loops, clear yellow urine. Bed alarm on, bed at lowest position, call light within reach. Will continue to monitor.
[2019-05-05 20:00] VITALS: BP_SYST 130
--- NOTE | 2019-05-05 22:14 | NUR ---
Patient is resting, warm blanket provided, reoriented patient to room and call light. Will continue to monitor.
[2019-05-06] VITALS: BP_SYST 138
--- NOTE | 2019-05-06 00:01 | NUR ---
Patient is resting, self buckley. No signs of distress observed. will continue to monitor.
[2019-05-06] MEDS: cefTRIAXone 1 GM IVPB PREMIX 50 ML IV SCH ×2 (00:08→12:28)
--- NOTE | 2019-05-06 02:11 | NUR ---
Patient is already out of bed despite bed alarm on. Patient is confused, reoriented patient that patient does not have to go to the restroom, but there is a peguero catheter that helps her. Patient is back in bed, still confused and wanting to go to the restroom. Will continue to monitor. Bed alarm on.
--- NOTE | 2019-05-06 04:05 | NUR ---
Patient is confused, asking for nurse and wanting to ambulate to go to the restroom. Reoriented patient to room and peguero catheter. Will continue to monitor.
--- NOTE | 2019-05-06 06:41 | NUR ---
CLOSING NOTES Patient resting in bed, more alert, no signs of acute respiratory distress observed. IV site patent, dressings c/d/i, saline lock. Shahid catheter in place, draining by gravity, no kinks or loops, clear yellow urine. Bed alarm on, bed at lowest position, call light within reach. All needs met throughout shift. Will endorse care to oncoming shift.
[2019-05-06 07:46] LABS: BASOPHILS % (AUTO) 0.1 % (0.0-2.0); HEMATOCRIT 39.5 % (36-48); LYMPHOCYTES # (AUTO) 0.9 K/uL (1.0-5.5); LYMPHOCYTES % (AUTO) 6.9 % (20.5-51.5); MEAN CORPUSCULAR HEMOGLOBIN 31 pg (27-31); MEAN CORPUSCULAR HGB CONC 33 % (32-36); MEAN CORPUSCULAR VOLUME 94 fL (79.0-98.0); MONOCYTES # (AUTO) 0.9 K/uL (0.0-1.0); MONOCYTES % (AUTO) 6.6 % (1.7-9.3); NEUTROPHILS # (AUTO) 11.7 K/uL (1.8-7.7); NEUTROPHILS % (AUTO) 86.4 % (40.0-70.0); PLATELET COUNT (AUTO) 366 K/uL (130-430); RED BLOOD CELL COUNT(AUTO) 4.22 MIL/uL (4.2-6.2); RED CELL DISTRIBUTION WIDTH 11.9 % (9.0-15.0); WHITE BLOOD COUNT (AUTO) 13.6 K/uL (4.8-10.8)
[2019-05-06 08:00] VITALS: BP_SYST 138
--- NOTE | 2019-05-06 08:00 | NUR ---
rounds rec patient eating breakfast. ivl on the r hand intact. no infiltration noted. resp easy and unlabored. no sob noted. bed to the lowest position and side rails up and locked. call light within reached.
[2019-05-06 08:06] LABS: ALANINE AMINOTRANSFERASE 36 U/L (12-78); ALBUMIN 2.2 g/dL (3.4-4.8); ANION GAP 8 (5-15); ASPARTATE AMINOTRANSFERASE 21 U/L (10-37); CALCIUM 8.2 mg/dL (8.4-11.0); CHLORIDE 105 mmol/L (98-107); CREATININE 0.67 mg/dL (0.55-1.30); GLUCOSE 128 mg/dL (70-99); POTASSIUM 3.9 mmol/L (3.5-5.1); SODIUM SERUM 140 mmol/L (136-145); TOTAL BILIRUBIN 0.2 mg/dL (0.0-1.0); UREA NITROGEN, BLOOD 16 mg/dL (8-21)
[2019-05-06] MEDS ORDERED: ENOXAPARIN SODIUM 40 MG/0.4 ML SYRINGE SUBCUT SCH (09:00)
[2019-05-06] MEDS: ATORVASTATIN 10 MG TABLET PO SCH (10:20)
[2019-05-06] MEDS: amLODIPine BESYLATE 5 MG TABLET PO SCH (10:21)
[2019-05-06] MEDS ORDERED: LEVO500T89 PO (12:04)
[2019-05-06] MEDS ORDERED: TAMS-11 PO (12:04)
[2019-05-06 12:20] VITALS: BP_SYST 153
--- NOTE | 2019-05-06 12:38 | NUR ---
rounds seen by dr misael ragland covering for dr gonzalez . sapna was dc/d and able to void can be d/c per misael ragland.
--- NOTE | 2019-05-06 13:30 | NUR ---
rounds pt voided to moderate amount of urine. denies pain. resting comfortably. awaiting for daughter to come and hot die picker patient.
--- NOTE | 2019-05-06 14:02 | NUR ---
Patient able to urinate after removal of peguero catheter denies any dysuria.
--- NOTE | 2019-05-06 14:03 | NUR ---
P.T. NOTES P.T. EVAL COMPLETED; PATIENT MAY AMBULATE W/ NURSE AD ANTHONY.
[2019-05-06 14:40] VITALS: BP_SYST 148
--- NOTE | 2019-05-06 15:40 | NUR ---
closing notes pt's daughter came to brick picker patient. instructed her re appt with urologist , and with dr mason and primary md. ivl and id band was removed. pt was wheeled outside and pt is stable. needs attended.
[2019-05-06 16:25] VITALS: BP_SYST 144
--- NOTE | 2019-05-11 15:11 | NUR ---
Discharge Follow Up Phone Call Phoned patient, , and left a voicemail message with reminder to make follow up appointments and offer of assistance. Also stated that Ricco had come to the office to picking supervisor the signed [employer] application on 05/09/19. Left Social Service contact information.
== END 2019-05-06 15:40 | disposition home or self-care (01) | DRG 853 ==
LOC: SED 21:37 → STU 05-02 01:03
PROVIDERS: ADMIT Internal Medicine Hospice and Palliative Medicine; ATTEND Internal Medicine Hospice and Palliative Medicine
PROC: BT1F1ZZ Fluoroscopy of Left Kidney, Ureter and Bladder using Low Osmolar Contrast (ICD-10-PCS; 2019-05-05)
PROC: 0T778DZ Dilation of Left Ureter with Intraluminal Device, Via Natural or Artificial Opening Endoscopic (ICD-10-PCS; principal; 2019-05-05 09:00)
DX: A41.9 Sepsis, unspecified organism (principal); G93.41 Metabolic encephalopathy; E87.1 Hypo-osmolality and hyponatremia; N13.6 Pyonephrosis; N20.1 Calculus of ureter; B96.1 Klebsiella pneumoniae [K. pneumoniae] as the cause of diseases classified elsewhere; E78.5 Hyperlipidemia, unspecified; F03.90 Unspecified dementia, unspecified severity, without behavioral disturbance, psychotic disturbance, mood disturbance, and anxiety; E78.00 Pure hypercholesterolemia, unspecified; R91.8 Other nonspecific abnormal finding of lung field; I10 Essential (primary) hypertension; K44.9 Diaphragmatic hernia without obstruction or gangrene; Z82.49 Family history of ischemic heart disease and other diseases of the circulatory system; Z87.891 Personal history of nicotine dependence; Z91.19 Patient's noncompliance with other medical treatment and regimen; Z79.899 Other long term (current) drug therapy
CPT/HCPCS: 36415; 71045; 71250-TC; 76000; 76770; 80048; 80053; 81000-TC; 83605; 84484; 85007; 85025; 85027; 85610-TC; 85730-TC; 86710; 87040-TC; 87086; 87186-TC; 92610-GN; 93005; 96361; 96374; 99285; C1758; C1769; C2625; G0378; J0696; J1100; J1650; J1885; J2250; J2405; J2704; J3010; J3480; J7030; J7040; J7613; Q9967

== ENCOUNTER 2019-06-21 21:29 | Inpatient (IN) | payer OTHER, MEDICAID ==
[~2019-06-21] VITALS: Ht 160 cm; Wt 65.8 kg
[~2019-06-21 21:29] MED LIST: AMLO5TAB4 PO; LEVO500T89 PO; LIP10 PO; TAMS-11 PO
[2019-06-21 21:43] VITALS: BP_SYST 128
[2019-06-21] MEDS ORDERED: NACL 0.9% 1,000 ML IV ONE (22:00)
[2019-06-21 22:18] LABS: BASOPHILS % (AUTO) 0.3 % (0.0-2.0); EOSINOPHILS % (AUTO) 0.1 % (0.0-4.0); HEMOGLOBIN 13.1 g/dL (12.0-16.0); LYMPHOCYTES # (AUTO) 1.2 K/uL (1.0-5.5); LYMPHOCYTES % (AUTO) 10.8 % (20.5-51.5); MEAN CORPUSCULAR HEMOGLOBIN 31 pg (27-31); MEAN CORPUSCULAR HGB CONC 34 % (32-36); MEAN CORPUSCULAR VOLUME 91 fL (79.0-98.0); MONOCYTES # (AUTO) 1.4 K/uL (0.0-1.0); MONOCYTES % (AUTO) 11.9 % (1.7-9.3); NEUTROPHILS # (AUTO) 8.9 K/uL (1.8-7.7); NEUTROPHILS % (AUTO) 76.9 % (40.0-70.0); PLATELET COUNT (AUTO) 380 K/uL (130-430); RED BLOOD CELL COUNT(AUTO) 4.27 MIL/uL (4.2-6.2); RED CELL DISTRIBUTION WIDTH 12.5 % (9.0-15.0); WHITE BLOOD COUNT (AUTO) 11.6 K/uL (4.8-10.8)
[2019-06-21 22:29] LABS: ANION GAP 12 (5-15); CALCIUM 8.4 mg/dL (8.4-11.0); CHLORIDE 98 mmol/L (98-107); CREATININE 1.09 mg/dL (0.55-1.30); GLUCOSE 100 mg/dL (70-99); POTASSIUM 3.8 mmol/L (3.5-5.1); SODIUM SERUM 135 mmol/L (136-145); UREA NITROGEN, BLOOD 16 mg/dL (8-21)
[2019-06-21 22:37] LABS: ALANINE AMINOTRANSFERASE 36 U/L (12-78); ALBUMIN 2.5 g/dL (3.4-4.8); ASPARTATE AMINOTRANSFERASE 37 U/L (10-37); TOTAL BILIRUBIN 0.5 mg/dL (0.0-1.0)
[2019-06-21 22:45] LABS: BILIRUBIN,URINE NEGATIVE (NEGATIVE); BLOOD, URINE 3+ (NEGATIVE); CLARITY/URINE SL CLOUDY (CLEAR); COLOR,URINE YELLOW (YELLOW); GLUCOSE,URINE NEGATIVE (NEGATIVE); KETONES,URINE NEGATIVE (NEGATIVE); LEUKOCYTE ESTERASE ,URINE 2+ (NEGATIVE); NITRITE, URINE NEGATIVE (NEGATIVE); PROTEIN URINE 1+ (NEGATIVE); UROBILINOGEN,URINE 0.2 (0.2-1.0)
[2019-06-21 22:55] LABS: BACTERIA,URINE MODERATE /HPF (None Seen); WBC,URINE >100 /HPF (0-3); YEAST,URINE Moderate /HPF (None Seen)
[2019-06-21] MEDS ORDERED: cefTRIAXone 1 GM in D5W 50 ML IV ONE (23:00)
[2019-06-21] MEDS ORDERED: VANCOMYCIN HCL 1,000 MG in NS 250 ML IV ONE (23:00)
[2019-06-21] MEDS ORDERED: VANCOMYCIN HCL 1000 MG/VIAL IV ONE (23:09)
[2019-06-21] MEDS ORDERED: cefTRIAXone 1 GM IVPB PREMIX 50 ML IV ONE (23:10)
[2019-06-21] MEDS ORDERED: MAG HYDROX/AL HYDROX/SIMETH 30 ML, LIDOCAINE VISCOUS 2% 15ML (PO) 10 ML, DICYCLOMINE HC... PO ONE ×3 (23:45)
[2019-06-22 02:16] VITALS: BP_SYST 134
[2019-06-22 02:19] LABS: BILIRUBIN,URINE NEGATIVE (NEGATIVE); BLOOD, URINE 2+ (NEGATIVE); CLARITY/URINE CLEAR (CLEAR); COLOR,URINE YELLOW (YELLOW); GLUCOSE,URINE NEGATIVE (NEGATIVE); KETONES,URINE NEGATIVE (NEGATIVE); LEUKOCYTE ESTERASE ,URINE 2+ (NEGATIVE); NITRITE, URINE NEGATIVE (NEGATIVE); PROTEIN URINE TRACE (NEGATIVE); UROBILINOGEN,URINE 0.2 (0.2-1.0)
[2019-06-22 02:27] LABS: BACTERIA,URINE FEW /HPF (None Seen); RBC,URINE 50-80 /HPF (0-3); WBC,URINE 50-80 /HPF (0-3); YEAST,URINE Many /HPF (None Seen)
[2019-06-22] MEDS ORDERED: MORPHINE 2 MG/ML INJ. SYRINGE IVP ONE (04:15)
[2019-06-22] MEDS ORDERED: MORPHINE 2 MG/ML INJ. SYRINGE ONE (04:36)
[2019-06-22 07:50] LABS: BASOPHILS % (AUTO) 0.5 % (0.0-2.0); EOSINOPHILS % (AUTO) 0.5 % (0.0-4.0); HEMATOCRIT 37.4 % (36-48); HEMOGLOBIN 12.5 g/dL (12.0-16.0); LYMPHOCYTES # (AUTO) 1.2 K/uL (1.0-5.5); MEAN CORPUSCULAR HEMOGLOBIN 31 pg (27-31); MEAN CORPUSCULAR HGB CONC 33 % (32-36); MEAN CORPUSCULAR VOLUME 92 fL (79.0-98.0); MONOCYTES # (AUTO) 1.1 K/uL (0.0-1.0); MONOCYTES % (AUTO) 14.8 % (1.7-9.3); NEUTROPHILS # (AUTO) 4.9 K/uL (1.8-7.7); NEUTROPHILS % (AUTO) 68.2 % (40.0-70.0); PLATELET COUNT (AUTO) 333 K/uL (130-430); RED BLOOD CELL COUNT(AUTO) 4.09 MIL/uL (4.2-6.2); RED CELL DISTRIBUTION WIDTH 12.6 % (9.0-15.0); WHITE BLOOD COUNT (AUTO) 7.2 K/uL (4.8-10.8)
[2019-06-22 08:16] LABS: ALANINE AMINOTRANSFERASE 35 U/L (12-78); ALBUMIN 2.2 g/dL (3.4-4.8); ANION GAP 8 (5-15); ASPARTATE AMINOTRANSFERASE 37 U/L (10-37); CALCIUM 8.1 mg/dL (8.4-11.0); CHLORIDE 103 mmol/L (98-107); CREATININE 0.79 mg/dL (0.55-1.30); GLUCOSE 108 mg/dL (70-99); POTASSIUM 3.6 mmol/L (3.5-5.1); SODIUM SERUM 137 mmol/L (136-145); TOTAL BILIRUBIN 0.5 mg/dL (0.0-1.0); UREA NITROGEN, BLOOD 12 mg/dL (8-21)
[2019-06-22 08:22] VITALS: BP_SYST 117
[2019-06-22] MEDS ORDERED: ONDANSETRON HCL 4 MG/2 ML VIAL IVP PRN (09:00)
[2019-06-22] MEDS ORDERED: ALBUTEROL SULFATE 0.083% 2.5 MG/3 ML VIAL.NEB INH PRN (09:00)
[2019-06-22 09:27] VITALS: BP_SYST 117
[2019-06-22] MEDS ORDERED: ATORVASTATIN 10 MG TABLET PO ONE (10:00)
[2019-06-22] MEDS ORDERED: TAMSULOSIN HCL 0.4 MG CAP PO ONE (10:00)
[2019-06-22] MEDS ORDERED: amLODIPine BESYLATE 5 MG TABLET PO ONE (10:00)
[2019-06-22] MEDS: PIPERACILLIN/TAZO 3.375/DEX-IS 50 ML IV SCH ×4 (11:52→23:45)
[2019-06-22] MEDS: AZITHROMYCIN 500 MG in NS 250 ML IV SCH (11:52)
[2019-06-22 12:34] VITALS: BP_SYST 134
[2019-06-22 16:17] VITALS: BP_SYST 123
[2019-06-22] MEDS: ACETAMINOPHEN 325 MG TABLET PO PRN (17:53)
[2019-06-22 20:30] VITALS: BP_SYST 126
[2019-06-22] MEDS: PANTOPRAZOLE SODIUM 40 MG TAB PO SCH (20:34)
[2019-06-23 00:59] VITALS: BP_SYST 114
[2019-06-23] MEDS: PIPERACILLIN/TAZO 3.375/DEX-IS 50 ML IV SCH ×4 (05:18→23:39)
[2019-06-23] MEDS: AZITHROMYCIN 500 MG in NS 250 ML IV SCH (08:50)
[2019-06-23] MEDS: ATORVASTATIN 10 MG TABLET PO SCH (08:51)
[2019-06-23] MEDS: PANTOPRAZOLE SODIUM 40 MG TAB PO SCH ×2 (08:51→20:18)
[2019-06-23] MEDS: TAMSULOSIN HCL 0.4 MG CAP PO SCH (08:51)
[2019-06-23] MEDS: amLODIPine BESYLATE 5 MG TABLET PO SCH (08:54)
[2019-06-23 10:28] VITALS: BP_SYST 118
[2019-06-23 11:50] VITALS: BP_SYST 120
[2019-06-23] MEDS ORDERED: FLUCONAZOLE 100 MG TABLET (DIFLUCAN) PO ONE (14:45)
[2019-06-23 14:55] VITALS: BP_SYST 125
[2019-06-23 20:00] VITALS: BP_SYST 126
[2019-06-23] MEDS: ACETAMINOPHEN 325 MG TABLET PO PRN (20:36)
[2019-06-23] MEDS: guaiFENesin 200 MG/CODEINE 20 MG/ 10 ML UDC PO PRN (22:07)
[2019-06-23 23:58] VITALS: BP_SYST 124
[2019-06-24] MEDS: PIPERACILLIN/TAZO 3.375/DEX-IS 50 ML IV SCH ×3 (05:42→17:13)
[2019-06-24] MEDS: ACETAMINOPHEN 325 MG TABLET PO PRN ×2 (06:19→20:56)
[2019-06-24 07:56] VITALS: BP_SYST 124
[2019-06-24] MEDS: PANTOPRAZOLE SODIUM 40 MG TAB PO SCH ×2 (08:49→20:51)
[2019-06-24] MEDS: amLODIPine BESYLATE 5 MG TABLET PO SCH (08:49)
[2019-06-24] MEDS: ATORVASTATIN 10 MG TABLET PO SCH (08:49)
[2019-06-24] MEDS: FLUCONAZOLE 100 MG TABLET (DIFLUCAN) PO SCH (08:49)
[2019-06-24] MEDS: TAMSULOSIN HCL 0.4 MG CAP PO SCH (08:49)
[2019-06-24] MEDS: AZITHROMYCIN 500 MG in NS 250 ML IV SCH (08:49)
[2019-06-24 12:00] VITALS: BP_SYST 136
[2019-06-24 16:00] VITALS: BP_SYST 141
[2019-06-24 21:00] VITALS: BP_SYST 137
[2019-06-24 23:45] VITALS: BP_SYST 124
[2019-06-25] MEDS: PIPERACILLIN/TAZO 3.375/DEX-IS 50 ML IV SCH ×5 (00:17→23:55)
[2019-06-25 08:00] VITALS: BP_SYST 143
[2019-06-25] MEDS: AZITHROMYCIN 500 MG in NS 250 ML IV SCH (08:29)
[2019-06-25] MEDS: TAMSULOSIN HCL 0.4 MG CAP PO SCH (08:30)
[2019-06-25] MEDS: FLUCONAZOLE 100 MG TABLET (DIFLUCAN) PO SCH (08:30)
[2019-06-25] MEDS: amLODIPine BESYLATE 5 MG TABLET PO SCH (08:30)
[2019-06-25] MEDS: ATORVASTATIN 10 MG TABLET PO SCH (08:30)
[2019-06-25] MEDS: PANTOPRAZOLE SODIUM 40 MG TAB PO SCH ×2 (08:30→21:25)
[2019-06-25] MEDS: ACETAMINOPHEN 325 MG TABLET PO PRN ×3 (08:40→21:26)
[2019-06-25 11:29] VITALS: BP_SYST 143
[2019-06-25 12:32] VITALS: BP_SYST 131
[2019-06-25 16:50] VITALS: BP_SYST 110
[2019-06-25 20:05] VITALS: BP_SYST 130
[2019-06-26 00:48] VITALS: BP_SYST 139
[2019-06-26] MEDS: PIPERACILLIN/TAZO 3.375/DEX-IS 50 ML IV SCH ×3 (05:54→18:23)
[2019-06-26 06:20] LABS: INR 1.1 (0.8-1.2); PROTHROMBIN TIME 10.7 SECS (9.5-12.5)
[2019-06-26] MEDS: MORPHINE 2 MG/ML INJ. SYRINGE IVP PRN ×2 (07:02→13:10)
[2019-06-26 08:00] VITALS: BP_SYST 127
[2019-06-26] MEDS: PANTOPRAZOLE SODIUM 40 MG TAB PO SCH ×2 (09:11→21:40)
[2019-06-26] MEDS: FLUCONAZOLE 100 MG TABLET (DIFLUCAN) PO SCH (09:11)
[2019-06-26] MEDS: ATORVASTATIN 10 MG TABLET PO SCH (09:11)
[2019-06-26] MEDS: TAMSULOSIN HCL 0.4 MG CAP PO SCH (09:11)
[2019-06-26] MEDS: amLODIPine BESYLATE 5 MG TABLET PO SCH (09:12)
[2019-06-26] MEDS: AZITHROMYCIN 500 MG in NS 250 ML IV SCH (09:13)
[2019-06-26] MEDS ORDERED: LIDOCAINE 1%, 20 ML MDV 0 ML ONE (12:24)
[2019-06-26 12:35] VITALS: BP_SYST 123
[2019-06-26 17:01] VITALS: BP_SYST 124
[2019-06-26 20:00] VITALS: BP_SYST 136
[2019-06-26] MEDS: ACETAMINOPHEN 325 MG TABLET PO PRN (21:42)
[2019-06-27] MEDS: PIPERACILLIN/TAZO 3.375/DEX-IS 50 ML IV SCH ×3 (00:15→11:17)
[2019-06-27 00:41] VITALS: BP_SYST 132
[2019-06-27] MEDS: ACETAMINOPHEN 325 MG TABLET PO PRN ×2 (05:32→14:48)
[2019-06-27] MEDS: guaiFENesin 200 MG/CODEINE 20 MG/ 10 ML UDC PO PRN (05:32)
[2019-06-27 06:47] LABS: BASOPHILS % (AUTO) 0.4 % (0.0-2.0); EOSINOPHILS % (AUTO) 0.5 % (0.0-4.0); HEMATOCRIT 34.8 % (36-48); LYMPHOCYTES # (AUTO) 0.9 K/uL (1.0-5.5); LYMPHOCYTES % (AUTO) 10.7 % (20.5-51.5); MEAN CORPUSCULAR HEMOGLOBIN 32 pg (27-31); MEAN CORPUSCULAR HGB CONC 35 % (32-36); MEAN CORPUSCULAR VOLUME 92 fL (79.0-98.0); MONOCYTES # (AUTO) 1.1 K/uL (0.0-1.0); MONOCYTES % (AUTO) 12.9 % (1.7-9.3); NEUTROPHILS # (AUTO) 6.4 K/uL (1.8-7.7); NEUTROPHILS % (AUTO) 75.5 % (40.0-70.0); PLATELET COUNT (AUTO) 371 K/uL (130-430); RED BLOOD CELL COUNT(AUTO) 3.79 MIL/uL (4.2-6.2); RED CELL DISTRIBUTION WIDTH 13.1 % (9.0-15.0); WHITE BLOOD COUNT (AUTO) 8.4 K/uL (4.8-10.8)
[2019-06-27 08:00] VITALS: BP_SYST 117
[2019-06-27 08:45] LABS: ALANINE AMINOTRANSFERASE 40 U/L (12-78); ALBUMIN 1.8 g/dL (3.4-4.8); ANION GAP 10 (5-15); ASPARTATE AMINOTRANSFERASE 45 U/L (10-37); CALCIUM 8.1 mg/dL (8.4-11.0); CHLORIDE 102 mmol/L (98-107); CREATININE 0.88 mg/dL (0.55-1.30); GLUCOSE 111 mg/dL (70-99); LACTATE DEHYDROGENASE 279 U/L (81-234); POTASSIUM 3.3 mmol/L (3.5-5.1); SODIUM SERUM 136 mmol/L (136-145); TOTAL BILIRUBIN 0.6 mg/dL (0.0-1.0); UREA NITROGEN, BLOOD 9 mg/dL (8-21)
[2019-06-27] MEDS: PANTOPRAZOLE SODIUM 40 MG TAB PO SCH (09:07)
[2019-06-27] MEDS: FLUCONAZOLE 100 MG TABLET (DIFLUCAN) PO SCH (09:07)
[2019-06-27] MEDS: amLODIPine BESYLATE 5 MG TABLET PO SCH (09:07)
[2019-06-27] MEDS: ATORVASTATIN 10 MG TABLET PO SCH (09:07)
[2019-06-27] MEDS: TAMSULOSIN HCL 0.4 MG CAP PO SCH (09:07)
[2019-06-27] MEDS ORDERED: FLUC150T PO (10:50)
[2019-06-27] MEDS ORDERED: AMOX-426 PO (10:50)
[2019-06-27 11:41] LABS: BF APPEARANCE UNSPUN HAZY (CLEAR); SOURCE/TYPE ,BODY FLUID PLEURAL
[2019-06-27 11:42] LABS: BODY FLUID COLOR LT YELLOW (LT YELLOW); BODY FLUID TOTAL VOLUME 650 mL; LYMPHOCYTES, BODY FLUID 20 %; NEUTROPHIL, BODY FLUID 80 %; RBC, BODY FLUID 953.33 /uL; WBC, BODY FLUID 841.67 /uL
[2019-06-27] MEDS ORDERED: POTASSIUM CHLORIDE 20 MEQ TAB.PRT.SR PO ONE (11:45)
[2019-06-27 12:08] VITALS: BP_SYST 145
[2019-06-27 12:16] VITALS: BP_SYST 132
[2019-06-27 16:51] VITALS: BP_SYST 140
[2019-06-27 19:44] LABS: BODY FLUID GLUCOSE 98 mg/dL
[2019-06-27 19:45] LABS: BODY FLUID TOTAL PROTEIN 3.4 g/dL
== END 2019-06-27 17:10 | disposition home or self-care (01) | DRG 871 ==
LOC: SED 21:29 → STU 06-22 01:22
PROVIDERS: ADMIT Internal Medicine Hospice and Palliative Medicine; ATTEND Internal Medicine Hospice and Palliative Medicine
PROC: 0FD13ZX Extraction of Right Lobe Liver, Percutaneous Approach, Diagnostic (ICD-10-PCS; 2019-06-26)
PROC: 0W9B3ZZ Drainage of Left Pleural Cavity, Percutaneous Approach (ICD-10-PCS; principal; 2019-06-27)
DX: A41.9 Sepsis, unspecified organism (principal); J18.9 Pneumonia, unspecified organism; E43 Unspecified severe protein-calorie malnutrition; C78.7 Secondary malignant neoplasm of liver and intrahepatic bile duct; B37.49 Other urogenital candidiasis; K80.20 Calculus of gallbladder without cholecystitis without obstruction; E78.5 Hyperlipidemia, unspecified; F03.90 Unspecified dementia, unspecified severity, without behavioral disturbance, psychotic disturbance, mood disturbance, and anxiety; N20.0 Calculus of kidney; R91.8 Other nonspecific abnormal finding of lung field; I10 Essential (primary) hypertension; Z87.891 Personal history of nicotine dependence; Z87.442 Personal history of urinary calculi; Z79.899 Other long term (current) drug therapy; Z68.25 Body mass index [BMI] 25.0-25.9, adult
CPT/HCPCS: 32555; 36415; 47000; 70450-TC; 71045; 71250-TC; 80053; 81000-TC; 82947-TC; 83605; 83615-TC; 84157-TC; 84484; 85025; 85610-TC; 85730-TC; 87040-TC; 87070-TC; 87086; 87116; 88307; 88313; 89051-TC; 89060-TC; 93005; 93306; 94640; 96365; 96366; 96367; 99285; G0378; J0456; J0696; J2001; J2270; J2543; J3370; J7030; J7040; J7050; J7613